=== PATIENT | female | born 1995 | race African-American/Black ===

== ENCOUNTER 2017-08-21 14:28 | Emergency (ER) | payer SELFPAY ==
--- NOTE | 2017-08-21 16:19 | ER Document Report ---
ED GI/ - General Chief Complaint: Abdominal Pain Stated Complaint: ABDOMINAL PAIN Time Seen by Provider: 08/21/17 16:05 Notes: The patient is a 22-year-old female who presents with several weeks of lower abdominal cramping, upper leg cramping and vaginal bleeding. The vaginal bleeding has resolved. She had a home test a few days ago and is unsure if she miscarried. She says that she frequently has lower abdominal cramping, lower back pain and upper leg cramping when she has her period. She is also having mild dysuria. Patient denies nausea, vomiting, fevers, flank pain , diarrhea, constipation or leg swelling. TRAVEL OUTSIDE OF THE [place] IN LAST 30 DAYS: No - Related Data Allergies/Adverse Reactions: No Known Allergies Allergy (Unverified 08/21/17 14:39) Past Medical History - General Information source: Patient - Social History Smoking Status: Never Smoker Chew tobacco use (# tins/day): No Frequency of alcohol use: None Drug Abuse: None Family History: Reviewed & Not Pertinent Patient has suicidal ideation: No Patient has homicidal ideation: No Pulmonary Medical History: Reports: Hx Bronchitis Renal/ Medical History: Denies: Hx Peritoneal Dialysis Past Surgical History: Reports: Hx Tonsillectomy Review of Systems - Review of Systems Notes: REVIEW OF SYSTEMS: CONSTITUTIONAL: -fevers, -chills EENT: -eye pain, -difficulty swallowing, -nasal congestion CARDIOVASCULAR:-chest pain, -syncope. RESPIRATORY: -cough, -SOB GASTROINTESTINAL: +lower abdominal pain, -nausea, -vomiting, -diarrhea GENITOURINARY: +dysuria, -hematuria, +vaginal bleeding MUSCULOSKELETAL: +back pain, -neck pain SKIN: -rash or skin lesions. HEMATOLOGIC: -easy bruising or bleeding. LYMPHATIC: -swollen, enlarged glands. NEUROLOGICAL: -altered mental status or loss of consciousness, -headache, - neurologic symptoms PSYCHIATRIC: -anxiety, -depression. ALL OTHER SYSTEMS REVIEWED AND NEGATIVE. Physical Exam - Vital signs Vitals: Temp Pulse Resp BP Pulse Ox 98.5 F 87 16 148/81 H 99 08/21/17 14:39 08/21/17 14:39 08/21/17 14:39 08/21/17 14:39 08/21/17 14:39 - Notes Notes: PHYSICAL EXAMINATION: GENERAL: Well-appearing, well-nourished and in no acute distress. HEAD: Atraumatic, normocephalic. EYES: Pupils equal round and reactive to light, extraocular movements intact, sclera anicteric, conjunctiva are normal. ENT: nares patent, oropharynx clear without exudates. Moist mucous membranes. NECK: Normal range of motion, supple without lymphadenopathy LUNGS: Breath sounds clear to auscultation bilaterally and equal. No wheezes rales or rhonchi. HEART: Regular rate and rhythm without murmurs ABDOMEN: Soft, nontender, normoactive bowel sounds. No guarding, no rebound. No masses appreciated. EXTREMITIES: Normal range of motion, no pitting or edema. No cyanosis. NEUROLOGICAL: Cranial nerves grossly intact. Normal speech, normal gait. Normal sensory and motor exams. PSYCH: Normal mood, normal affect. SKIN: Warm, Dry, normal turgor, no rashes or lesions noted. Course - Re-evaluation Re-evalutation: Patient has absolutely no abdominal tenderness. With mild dysuria, 17 WBCs and moderate leukocyte esterase, will place patient on Macrobid. She is not and with a positive home test, vaginal bleeding and a negative test in the ER, she may have miscarried. Referred her to gynecology for further evaluation and treatment. She appears well and rest of labs are unremarkable. Will discharge patient home with strict return precautions. - Vital Signs Vital signs: Temp Pulse Resp BP Pulse Ox 98.5 F 87 16 148/81 H 99 08/21/17 14:39 08/21/17 14:39 08/21/17 14:39 08/21/17 14:39 08/21/17 14:39 - Laboratory Result Diagrams: 08/21/17 16:42 08/21/17 16:42 Laboratory results interpreted by me: 08/21/17 08/21/17 16:42 16:42 Hgb 11.6 L Hct 33.8 L Ur Leukocyte Esterase MODERATE H Urine Ascorbic Acid 20 H Discharge - Discharge Clinical Impression: Abdominal pain Qualifiers: Abdominal location: lower abdomen, unspecified Qualified Code(s): R10.30 - Lower abdominal pain, unspecified UTI (urinary tract infection) Qualifiers: Urinary tract infection type: acute cystitis Hematuria presence: without hematuria Qualified Code(s): N30.00 - Acute cystitis without hematuria Condition: Stable Disposition: HOME, SELF-CARE Additional Instructions: ABDOMINAL PAIN: There are many causes of abdominal pain. Pain can mean a serious problem requiring surgery (such as appendicitis). It can also be an innocent problem that goes away on its own (such as a viral infection). Often, time must pass to determine the cause of pain. The physician does not feel that hospitalization is necessary, at present. Things may change within the next 24 hours. Call the doctor or come back for re- examination if any problems occur, such as: (1) Pain that becomes more severe, steady, or becomes concentrated in one specific area. Also, pain that is more severe with movement or coughing. (2) Vomiting that persists or becomes more frequent. (3) Blood in the vomitus, urine, or bowel movements. Blood in the stool may have a tarry or black appearance. (4) Shaking chills or fever greater than 100 degrees F. (5) The abdomen becomes more distended or swollen. (6) Bowel movements cease. (7) Failure to improve as expected. NORMAL EXAM AND WORKUP: At this time, your examination and workup show no significant abnormality. No significant abnormal physical findings are noted. All laboratory, EKG, and imaging (x-ray, CT scans, ultrasound) studies that were ordered show no significant abnormality. Although your examination and all studies that were ordered showed no significant abnormal finding, there are no examinations and no studies that are 100% accurate. There is always the possibility that some abnormality could exist and not be detected with physical examination or within the limits and capabilities of laboratory and other studies. You should return or follow up as you were instructed on your visit today for further evaluation if your symptoms do not resolve. FOLLOW-UP CARE: If you have been referred to a physician for follow-up care, call the physician s office for an appointment as you were instructed or within the next two days. If you experience worsening or a significant change in your symptoms, notify the physician immediately or return to the Emergency Department at any time for re-evaluation. URINARY TRACT INFECTION: Your evaluation indicates that you have a urinary tract infection. This is due to germs growing in the bladder. This is a common problem. This infection usually responds quickly to antibiotics. Your antibiotic should be taken exactly as prescribed. Drink plenty of fluids -- three to four quarts a day. Occasionally, a bladder anesthetic will be prescribed to help stop the feeling of urgency until the antibiotic has a chance to clear the infection. This may cause your urine to be dark orange. Certain urine infections require a culture. If the doctor obtained a culture, the results will be back in two days. You should call to see if a change in treatment is needed. A repeat urinalysis after you finish treatment is often recommended. The physician will let you know if further testing is required. Call the doctor if you develop fever, chills, flank pain, inability to urinate, or blood in the urine. NITROFURANTOIN (MACRODANTIN, MACROBID): You have received a prescription for nitrofurantoin (Macrodantin). This antibiotic is used for urinary tract infections. Women who are or nursing should notify the physician before taking this medicine. If you have ever had a problem caused by this medication in the past, be sure the physician is aware of it. Common side effects of this medicine include nausea, vomiting, or decreased appetite. Notify your physician if these side effects become severe. Immediately stop this medicine and call the physician if you develop cough , shortness of breath, chest pain, weakness, jaundice (yellow color of the skin and whites of the eyes), or a skin rash. FOLLOW-UP CARE: If you have been referred to a physician for follow-up care, call the physician s office for an appointment as you were instructed or within the next two days. If you experience worsening or a significant change in your symptoms, notify the physician immediately or return to the Emergency Department at any time for re-evaluation. Prescriptions: Nitrofurantoin/Nitrofuran Mac [Macrobid 100 mg Capsule] 1 tab PO BID #10 capsule Referrals: THAIS ROSADO MD [ACTIVE STAFF] - Follow up as needed
[2017-08-21 16:56] LABS: ABSOLUTE LYMPHOCYTES (AUTO) 2.3 10^3/uL (0.5-4.7); ABSOLUTE MONOCYTES (AUTO) 0.5 10^3/uL (0.1-1.4); ABSOLUTE NEUT (AUTO) 3.9 10^3/uL (1.7-8.2); BASOPHILS % (AUTO) 0.6 % (0-2); EOSINOPHILS % (AUTO) 0.6 % (0-6); HEMATOCRIT 33.8 % (36.0-47.0); HEMOGLOBIN 11.6 g/dL (12.0-15.5); LYMPHOCYTES % (AUTO) 33.6 % (13-45); MEAN CORPUSCULAR HEMOGLOBIN 28.4 pg (27.0-33.4); MEAN CORPUSCULAR HGB CONC 34.2 g/dL (32.0-36.0); MEAN CORPUSCULAR VOLUME 83 fl (80-97); MONOCYTES % (AUTO) 7.3 % (3-13); RED BLOOD COUNT 4.08 10^6/uL (3.72-5.28); SEGMENTED NEUTROPHILS % (AUTO) 57.9 % (42-78); WHITE BLOOD COUNT 6.8 10^3/uL (4.0-10.5)
[2017-08-21 17:02] LABS: APPEARANCE,URINE SLIGHTLY-CLOUDY; BILIRUBIN,URINE NEGATIVE (NEGATIVE); GLUCOSE, URINE NEGATIVE (NEGATIVE); KETONES,URINE NEGATIVE (NEGATIVE); LEUKOCYTE ESTERASE,URINE MODERATE (NEGATIVE); NITRITE,URINE NEGATIVE (NEGATIVE); PROTEIN,URINE NEGATIVE (NEGATIVE); URINE SPECIFIC GRAVITY 1.013; UROBILINOGEN,URINE NEGATIVE mg/dL (<2.0)
[2017-08-21 17:35] LABS: ALANINE AMINOTRANSFERASE 21 U/L (9-52); ALBUMIN 4.4 g/dL (3.5-5.0); ALKALINE PHOSPHATASE 76 U/L (38-126); ANION GAP 12 (5-19); ASPARTATE AMINO TRANSFERASE 24 U/L (14-36); BILIRUBIN,DIRECT 0.3 mg/dL (0.0-0.4); BILIRUBIN,TOTAL 0.3 mg/dL (0.2-1.3); BLOOD UREA NITROGEN 8 mg/dL (7-20); CALCIUM 9.1 mg/dL (8.4-10.2); CARBON DIOXIDE 23 mmol/L (22-30); CHLORIDE 104 mmol/L (98-107); CREATININE RESULT 0.61 mg/dL (0.52-1.25); GLUCOSE 82 mg/dL (75-110); POTASSIUM 3.9 mmol/L (3.6-5.0); SODIUM 139.4 mmol/L (137-145); TOTAL PROTEIN 8.2 g/dL (6.3-8.2)
[2017-08-21 18:40] VITALS: BP 130/78
== END 2017-08-21 18:36 | disposition home or self-care (01) ==
LOC: ER 14:28
DX: N30.00 Acute cystitis without hematuria (principal); R10.30 Lower abdominal pain, unspecified; R25.2 Cramp and spasm; N93.9 Abnormal uterine and vaginal bleeding, unspecified
CPT/HCPCS: 36415; 80053; 81001; 84702; 85025; 86900; 86901; 99284

== ENCOUNTER 2017-09-15 14:14 | Emergency (ER) | payer SELFPAY ==
--- NOTE | 2017-09-15 14:40 | ER Document Report ---
ED Medical Screen (RME) - General Chief Complaint: Pelvic Pain Stated Complaint: PELVIC PAIN Time Seen by Provider: 09/15/17 14:38 Mode of Arrival: Ambulatory Information source: Patient TRAVEL OUTSIDE OF THE [place] IN LAST 30 DAYS: No - HPI Patient complains to provider of: vaginal bleeding ; pelvic pain Onset: Other - pt states she had vaginal bleeding for 2 weeks last month which finally stopped and now has had severe R sided pelvic pain for the past 1-2 days. - Related Data Allergies/Adverse Reactions: No Known Allergies Allergy (Unverified 08/21/17 14:39) Home Medications: Current Home Medications No Home Medications 09/15/17 [History] Past Medical History - Social History Chew tobacco use (# tins/day): No Frequency of alcohol use: None Drug Abuse: None Pulmonary Medical History: Reports: Hx Bronchitis Renal/ Medical History: Denies: Hx Peritoneal Dialysis Past Surgical History: Reports: Hx Tonsillectomy Physical Exam - Vital signs Vitals: Temp Pulse Resp BP Pulse Ox 98.5 F 85 14 132/68 H 100 09/15/17 14:28 09/15/17 14:28 09/15/17 14:28 09/15/17 14:28 09/15/17 14:28 Course - Vital Signs Vital signs: Temp Pulse Resp BP Pulse Ox 98.5 F 85 14 132/68 H 100 09/15/17 14:28 09/15/17 14:28 09/15/17 14:28 09/15/17 14:28 09/15/17 14:28
[2017-09-15 15:06] LABS: ABSOLUTE EOSINOPHILS # (AUTO) 0.1 10^3/uL (0.0-0.6); ABSOLUTE LYMPHOCYTES (AUTO) 1.9 10^3/uL (0.5-4.7); ABSOLUTE MONOCYTES (AUTO) 0.5 10^3/uL (0.1-1.4); BASOPHILS % (AUTO) 0.4 % (0-2); EOSINOPHILS % (AUTO) 1.6 % (0-6); HEMATOCRIT 35.1 % (36.0-47.0); HEMOGLOBIN 11.8 g/dL (12.0-15.5); HGB HCT DIFFERENCE 0.3; LYMPHOCYTES % (AUTO) 35.2 % (13-45); MEAN CORPUSCULAR HEMOGLOBIN 28.1 pg (27.0-33.4); MEAN CORPUSCULAR HGB CONC 33.7 g/dL (32.0-36.0); MEAN CORPUSCULAR VOLUME 83 fl (80-97); MONOCYTES % (AUTO) 8.4 % (3-13); RED BLOOD COUNT 4.22 10^6/uL (3.72-5.28); SEGMENTED NEUTROPHILS % (AUTO) 54.4 % (42-78); WHITE BLOOD COUNT 5.5 10^3/uL (4.0-10.5)
[2017-09-15 15:18] LABS: APPEARANCE,URINE SLIGHTLY-CLOUDY; BILIRUBIN,URINE NEGATIVE (NEGATIVE); GLUCOSE, URINE NEGATIVE (NEGATIVE); KETONES,URINE NEGATIVE (NEGATIVE); LEUKOCYTE ESTERASE,URINE SMALL (NEGATIVE); NITRITE,URINE NEGATIVE (NEGATIVE); PROTEIN,URINE NEGATIVE (NEGATIVE); UROBILINOGEN,URINE NEGATIVE mg/dL (<2.0)
[2017-09-15 15:21] LABS: ALANINE AMINOTRANSFERASE 26 U/L (9-52); ALBUMIN 4.3 g/dL (3.5-5.0); ALKALINE PHOSPHATASE 74 U/L (38-126); ANION GAP 17 (5-19); ASPARTATE AMINO TRANSFERASE 17 U/L (14-36); BILIRUBIN,DIRECT 0.3 mg/dL (0.0-0.4); BILIRUBIN,TOTAL 0.6 mg/dL (0.2-1.3); BLOOD UREA NITROGEN 9 mg/dL (7-20); CALCIUM 9.7 mg/dL (8.4-10.2); CARBON DIOXIDE 24 mmol/L (22-30); CHLORIDE 104 mmol/L (98-107); CREATININE RESULT 0.72 mg/dL (0.52-1.25); GLUCOSE 96 mg/dL (75-110); POTASSIUM 4.2 mmol/L (3.6-5.0); SODIUM 144.5 mmol/L (137-145)
--- NOTE | 2017-09-15 15:51 | ER Document Report ---
ED GI/ - General Chief Complaint: Pelvic Pain Stated Complaint: PELVIC PAIN Time Seen by Provider: 09/15/17 14:38 Mode of Arrival: Ambulatory Notes: 22 years old female presents today with pain over lower abdomen and pelvic region for the last 2-3 days. Apparently she had a heavy bleeding for 2 weeks in June to August. And then is stopped. Currently has no vaginal discharge or bleeding. Denies any dysuria frequency urgency. Denies any nausea vomiting. She admits that she gets constipated frequently. TRAVEL OUTSIDE OF THE [place] IN LAST 30 DAYS: No - Related Data Allergies/Adverse Reactions: No Known Allergies Allergy (Unverified 08/21/17 14:39) Past Medical History - General Information source: Patient - Social History Smoking Status: Never Smoker Chew tobacco use (# tins/day): No Frequency of alcohol use: None Drug Abuse: None Family History: Reviewed & Not Pertinent Patient has suicidal ideation: No Patient has homicidal ideation: No Pulmonary Medical History: Reports: Hx Bronchitis Renal/ Medical History: Denies: Hx Peritoneal Dialysis Past Surgical History: Reports: Hx Tonsillectomy Review of Systems - Review of Systems Notes: REVIEW OF SYSTEMS: CONSTITUTIONAL : Denies fever, chills, or sweats. Denies recent illness. EENT: Denies eye, ear, throat, or mouth pain or symptoms. Denies nasal or sinus congestion or discharge. Denies throat, tongue, or mouth swelling or difficulty swallowing. CARDIOVASCULAR: Denies chest pain. Denies palpitations or racing or irregular heart beat. Denies ankle edema. RESPIRATORY: Denies cough, cold, or chest congestion. Denies shortness of breath, difficulty breathing, or wheezing. GASTROINTESTINAL: Denies abdominal pain or distention. Denies nausea, vomiting , or diarrhea. Denies blood in vomitus, stools, or per rectum. Denies black, tarry stools. Denies constipation. GENITOURINARY: Denies difficulty urinating, painful urination, burning, frequency, blood in urine, or discharge. FEMALE GENITOURINARY: Denies vaginal bleeding, heavy or abnormal periods, irregular periods. Denies vaginal discharge or odor. MUSCULOSKELETAL: Denies back or neck pain or stiffness. Denies joint pain or swelling. SKIN: Denies rash, lesions or sores. HEMATOLOGIC : Denies easy bruising or bleeding. LYMPHATIC: Denies swollen, enlarged glands. NEUROLOGICAL: Denies confusion or altered mental status. Denies passing out or loss of consciousness. Denies dizziness or lightheadedness. Denies headache. Denies weakness or paralysis or loss of use of either side. Denies problems with gait or speech. Denies sensory loss, numbness, or tingling. Denies seizures. PSYCHIATRIC: Denies anxiety or stress. Denies depression, suicidal ideation, or homicidal ideation. ALL OTHER SYSTEMS REVIEWED AND NEGATIVE. PHYSICAL EXAMINATION: GENERAL: Well-appearing, well-nourished and in no acute distress. HEAD: Atraumatic, normocephalic. EYES: Pupils equal round and reactive to light, extraocular movements intact, conjunctiva are normal. ENT: Nares patent, oropharynx clear without exudates. Moist mucous membranes. NECK: Normal range of motion, supple without lymphadenopathy LUNGS: Breath sounds clear to auscultation bilaterally and equal. No wheezes rales or rhonchi. HEART: Regular rate and rhythm without murmurs ABDOMEN: Soft, palpable fecal mass on the left side and tenderness diffusely over the left lower quadrant and suprapubic region.. No guarding, no rebound. No masses appreciated. Female : deferred Musculoskeletal: Normal range of motion, no pitting or edema. No cyanosis. NEUROLOGICAL: Cranial nerves grossly intact. Normal speech, normal gait. Normal sensory, motor exams PSYCH: Normal mood, normal affect. SKIN: Warm, Dry, normal turgor, no rashes or lesions noted. Dictation was performed using [employer] voice recognition software Physical Exam - Vital signs Vitals: Temp Pulse Resp BP Pulse Ox 98.5 F 85 14 132/68 H 100 09/15/17 14:28 09/15/17 14:28 09/15/17 14:28 09/15/17 14:28 09/15/17 14:28 Course - Vital Signs Vital signs: Temp Pulse Resp BP Pulse Ox 98.5 F 85 14 132/68 H 100 09/15/17 14:28 09/15/17 14:28 09/15/17 14:28 09/15/17 14:28 09/15/17 14:28 - Laboratory Result Diagrams: 09/15/17 14:50 09/15/17 14:50 Laboratory results interpreted by me: 09/15/17 09/15/17 14:50 14:50 Hgb 11.8 L Hct 35.1 L Ur Leukocyte Esterase SMALL H - Diagnostic Test Radiology results interpreted by me: 09/15/17 17:09 Radiology report was reviewed, ultrasound indicates as a normal study KUB was reviewed shows large amount of fecal material. Discharge - Discharge Clinical Impression: Abdominal pain Qualifiers: Abdominal location: lower abdomen, unspecified Qualified Code(s): R10.30 - Lower abdominal pain, unspecified Constipation Qualifiers: Constipation type: slow transit constipation Qualified Code(s): K59.01 - Slow transit constipation Menses regular with excessive bleeding Qualifiers: Menorrahagia type: with regular cycle Qualified Code(s): N92.0 - Excessive and frequent menstruation with regular cycle Condition: Good Disposition: HOME, SELF-CARE Instructions: Abdominal Pain ([facility]) Additional Instructions: Constipation Prescriptions: Dicyclomine HCl [Bentyl 10 mg Capsule] 1 cap PO TID #30 cap Lactulose 20 gm PO BID #100 ml
--- NOTE | 2017-09-15 16:43 | RADIOLOGY REPORT (SQ) ---
EXAM DESCRIPTION: KUB/ABDOMEN (SINGLE VIEW) COMPLETED DATE/TIME: 09/15/2017 4:34 pm REASON FOR STUDY: Abdominal pain COMPARISON: None. NUMBER OF VIEWS: One view. TECHNIQUE: Supine radiographic image of the abdomen acquired. LIMITATIONS: None. FINDINGS: BOWEL GAS PATTERN: Normal bowel gas pattern. No dilated loops. CALCIFICATIONS: No suspicious calcifications. SOFT TISSUES: No gross mass or suggestion of organomegaly. HARDWARE: None in the abdomen. BONES: No acute fracture. No worrisome bone lesions. OTHER: No other significant finding. IMPRESSION: NO RADIOGRAPHIC EVIDENCE FOR ACUTE ABDOMINAL DISEASE. TECHNICAL DOCUMENTATION: JOB ID: [id number] [employer]- All Rights Reserved
--- NOTE | 2017-09-15 16:44 | RADIOLOGY REPORT (SQ) ---
EXAM DESCRIPTION: U/S NON-OB PELVIS TV W/O DOP COMPLETED DATE/TIME: 09/15/2017 4:18 pm REASON FOR STUDY: Abdominal pain COMPARISON: None. TECHNIQUE: Dynamic and static grayscale images acquired of the pelvis via transvaginal approach and recorded on PACS. Additional selected color Doppler and spectral images recorded. LIMITATIONS: None. FINDINGS: UTERUS: Contour normal. No mass. ENDOMETRIAL STRIPE: No focal or generalized thickening. No masses. CERVIX: Single complicated Nabothian 5th anterior cervix. RIGHT OVARY: No abnormal masses. RIGHT OVARY DOPPLER: Normal arterial vascular flow without evidence for torsion. LEFT OVARY: No abnormal masses. LEFT OVARY DOPPLER: Normal arterial vascular flow without evidence for torsion. FREE FLUID: None noted. OTHER: No other significant finding. MEASUREMENTS: UTERUS: 7.1 x 4.2 x 3.0 cm. ENDOMETRIAL STRIPE: 5 mm RIGHT OVARY: 3.0 x 3.5 x 2.3 cm. LEFT OVARY: 3.4 x 2.0 x 1.8 cm. IMPRESSION: NORMAL TRANSVAGINAL PELVIC ULTRASOUND. TECHNICAL DOCUMENTATION: JOB ID: [id number]- All Rights Reserved
[2017-09-15 17:27] VITALS: BP 118/74
== END 2017-09-15 17:20 | disposition home or self-care (01) ==
LOC: ER 14:14
DX: K59.01 Slow transit constipation (principal); N92.0 Excessive and frequent menstruation with regular cycle; R10.2 Pelvic and perineal pain; R10.814 Left lower quadrant abdominal tenderness
CPT/HCPCS: 36415; 74000; 76830; 80053; 81001; 81025; 85025; 99284

== ENCOUNTER 2019-04-27 11:54 | Emergency (ER) | payer SELFPAY ==
--- NOTE | 2019-04-27 12:35 | ER Document Report ---
ED Psych Disorder / Suicide - General TRAVEL OUTSIDE OF THE [place] IN LAST 30 DAYS: No <REID BATES - Last Filed: 04/27/19 19:00> <EVAN DINERO - Last Filed: 04/28/19 09:51> <WENDYSKYETAM - Last Filed: 04/28/19 10:08> - General Chief Complaint: Possible Overdose Stated Complaint: POSSIBLE OVERDOSE Time Seen by Provider: 04/27/19 12:33 Primary Care Provider: [facility] [Outside] - Follow up as needed [facility] [Outside] - 04/28/19 3:00 pm Notes: Patient says she is here because she took too many pills. She says that she has been depressed and about 1030 this morning took a whole bottle of hydrocodone pills. The bottle of hydrocodone says that it was the hydrocodone 5 mg/325 and that there were approximately 15 pills in the bottle. She also says that she took about 5 or 6 [id number] ibuprofen 800 mg. She is vomited about 5 or 6 times. Otherwise no symptoms. Near tearful during my interview. (REID BATES) - Related Data Allergies/Adverse Reactions: No Known Allergies Allergy (Verified 04/27/19 11:55) Past Medical History - Social History Smoking Status: Unknown if Ever Smoked Family History: Reviewed & Not Pertinent Pulmonary Medical History: Reports: Hx Bronchitis Past Surgical History: Reports: Hx Tonsillectomy <REID BATES - Last Filed: 04/27/19 19:00> Review of Systems <REID BATES - Last Filed: 04/27/19 19:00> - Review of Systems Notes: CONSTITUTIONAL : Denies fever. CARDIOVASCULAR: Denies chest pain. RESPIRATORY: Denies cough, chest congestion, or shortness of breath. GASTROINTESTINAL: Denies abdominal pain or nausea, vomiting, or diarrhea. GENITOURINARY: Denies difficulty or painful urinating, urinary frequency, blood in urine. (REID BATES) Physical Exam - Vital signs Interpretation: Normal, Hypertensive - Mild <REID BATES - Last Filed: 04/27/19 19:00> - Vital signs Vitals: Temp Pulse Resp BP Pulse Ox 98.2 F 91 18 173/100 H 98 04/27/19 11:59 04/27/19 11:59 04/27/19 11:59 04/27/19 11:59 04/27/19 11:59 Notes: PHYSICAL EXAMINATION: GENERAL: Well-appearing, no acute distress. Sad and near tears at times. HEAD: Atraumatic, normocephalic. NECK: Normal range of motion, supple. LUNGS: Breath sounds clear and equal bilaterally. HEART: Regular rate and rhythm without murmurs heard. ABDOMEN: Soft, nontender. No guarding or rebound or masses felt. (REID BATES) Course - Laboratory Result Diagrams: 04/27/19 12:50 04/27/19 12:50 <REID BATES - Last Filed: 04/27/19 19:00> - Laboratory Result Diagrams: 04/27/19 12:50 04/28/19 06:12 <EVAN DINERO - Last Filed: 04/28/19 09:51> - Laboratory Result Diagrams: 04/27/19 12:50 04/28/19 06:12 <TAM SÁNCHEZ - Last Filed: 04/28/19 10:08> - Re-evaluation Re-evalutation: 04/27/19 16:20 Patient will be evaluated by [facility]. Routine labs will be ordered. 04/27/19 19:00 All admission labs were essentially normal except the urine looks like the patient could have either a UTI or a contaminated specimen. Of asked the lab to add on a urine culture. (REID BATES) - Vital Signs Vital signs: Temp Pulse Resp BP Pulse Ox 98.6 F 85 20 127/79 H 100 04/28/19 06:36 04/28/19 06:36 04/28/19 06:36 04/28/19 06:36 04/28/19 06:36 - Laboratory Laboratory results interpreted by ar: 04/27/19 04/27/19 04/27/19 12:50 12:50 13:50 Hgb 11.3 L Hct 34.0 L Urine Protein 30 H Ur Leukocyte Esterase LARGE H Urine Ascorbic Acid 40 H Salicylates < 1.0 L Acetaminophen 04/28/19 06:12 Hgb Hct Urine Protein Ur Leukocyte Esterase Urine Ascorbic Acid Salicylates Acetaminophen < 10 L Discharge <REID BATES - Last Filed: 04/27/19 19:00> <EVAN DINERO - Last Filed: 04/28/19 09:51> <TAM SÁNCHEZ - Last Filed: 04/28/19 10:08> - Discharge Clinical Impression: Suicidal overdose Qualifiers: Encounter type: initial encounter Qualified Code(s): T50.902A - Poisoning by unspecified drugs, medicaments and biological substances, intentional self-harm, initial encounter Depression Qualifiers: Depression Type: unspecified Qualified Code(s): F32.9 - Major depressive disorder, single episode, unspecified Condition: Stable Disposition: HOME, SELF-CARE Additional Instructions: You have been evaluated by both medical and behavioral health providers while in the emergency department. You have been cleared from both acute medical and psychiatric services. Discussion about medication took place for ruminating thoughts, depression and feelings of loneliness. You identified an interest in talking with somebody and started outpatient services with therapy. You have an initial appointment today (04/28/19) with a local provider that will establish services. Medication management and therapy are often very effective in combination. DEPRESSION: Your evaluation reveals that you have mental depression. While symptoms may be vague, they often include disturbance of sleep, fatigue, loss of appetite, and general loss of interest in life. While depression may be a side effect of drugs, or a reaction to a major change in your life, many cases have no known cause. If depression is acute, and related to a major loss in your life, you can expect it to clear completely with time. If you have been depressed a long time, are prone to repeated bouts of depression or low mood, or have been thinking of suicide, get help. Depression can be treated with anti-depressant medication and counselling. Long-term depression will often take a few weeks to clear, even with approp riate medication. Follow-up care is important. SUICIDAL IDEATION: Suicidal ideation is a common medical term for thoughts about suicide, which may be as detailed as a formulated plan, without the suicidal act itself. Although most people who undergo suicidal ideation do not commit suicide, some go on to make suicide attempts. The range of suicidal ideation varies greatly from fleeting to detailed planning, role playing, and unsuccessful attempts. While thoughts about suicide are common, most people do not carry out serious actions to commit suicide. Based upon your evaluation and discussion with you, we do not believe you are currently at risk to act upon your thoughts of suicide. You have agreed to return to the Emergency Department, at any time, if you feel inclined to act upon your suicidal thoughts. Overdose You have taken more medication than you should have. After your evaluation and care, it is felt that your overdose is not likely to be harmful or of any significant consequences to you and you are being discharged. In the future, y ou should be careful not to take more medications than what is prescribed for you. Although your overdose does not seem to be of any danger to you at this time, if you develop any unusual or unexpected symptoms after your discharge, you should return to the Emergency Department immediately for re-evaluation. FOLLOW-UP CARE: You have been scheduled for outpatient mental health follow up at [facility] for today (04/28/19) at 3:00PM. This is a general intake appointment and screening. They will arrange services and make appointments for those services after the intake. You have been provided [facility] Mobile Crisis number for crisis, talk therapy and linkage to other services/supports. If you experience worsening or a significant change in your symptoms, notify the physician immediately, utilize mobile crisis or return to the Emergency Department at any time for re-evaluation. Referrals: [facility] Crisis Team [Outside] - Follow up as needed [facility] [Outside] - 04/28/19 3:00 pm
[2019-04-27 13:20] LABS: ABSOLUTE LYMPHOCYTES (AUTO) 1.6 10^3/uL (0.5-4.7); ABSOLUTE MONOCYTES (AUTO) 0.5 10^3/uL (0.1-1.4); ABSOLUTE NEUT (AUTO) 3.3 10^3/uL (1.7-8.2); BASOPHILS % (AUTO) 0.5 % (0-2); EOSINOPHILS % (AUTO) 0.3 % (0-6); HEMOGLOBIN 11.3 g/dL (12.0-15.5); LYMPHOCYTES % (AUTO) 29.7 % (13-45); MEAN CORPUSCULAR HEMOGLOBIN 27.1 pg (27.0-33.4); MEAN CORPUSCULAR HGB CONC 33.1 g/dL (32.0-36.0); MEAN CORPUSCULAR VOLUME 82 fl (80-97); MONOCYTES % (AUTO) 8.5 % (3-13); PLATELET COUNT 343 10^3/uL (150-450); RED BLOOD COUNT 4.16 10^6/uL (3.72-5.28); RED CELL DISTRIBUTION WIDTH 13.8 % (11.5-14.0); TOTAL CELLS COUNTED % (AUTO) 100 %; WHITE BLOOD COUNT 5.4 10^3/uL (4.0-10.5)
[2019-04-27 13:36] LABS: ACETAMINOPHEN 24 ug/mL (10-30); ALANINE AMINOTRANSFERASE 12 U/L (9-52); ALBUMIN 4.3 g/dL (3.5-5.0); ALKALINE PHOSPHATASE 76 U/L (38-126); ANION GAP 9 (5-19); ASPARTATE AMINO TRANSFERASE 18 U/L (14-36); BILIRUBIN,DIRECT 0.2 mg/dL (0.0-0.4); BILIRUBIN,TOTAL 0.3 mg/dL (0.2-1.3); BLOOD UREA NITROGEN 9 mg/dL (7-20); CALCIUM 9.4 mg/dL (8.4-10.2); CARBON DIOXIDE 24 mmol/L (22-30); CHLORIDE 106 mmol/L (98-107); GLUCOSE 103 mg/dL (75-110); POTASSIUM 4.2 mmol/L (3.6-5.0); SODIUM 138.9 mmol/L (137-145); TOTAL PROTEIN 7.8 g/dL (6.3-8.2)
[2019-04-27 13:37] LABS: ALCOHOL < 10 mg/dL (NONE DETECTED); SALICYLATE < 1.0 mg/dL (2.0-20.0)
[2019-04-27 14:15] LABS: APPEARANCE,URINE SLIGHTLY-CLOUDY; BILIRUBIN,URINE NEGATIVE (NEGATIVE); COLOR,URINE YELLOW; GLUCOSE, URINE NEGATIVE (NEGATIVE); KETONES,URINE NEGATIVE (NEGATIVE); LEUKOCYTE ESTERASE,URINE LARGE (NEGATIVE); NITRITE,URINE NEGATIVE (NEGATIVE); PROTEIN,URINE 30 mg/dL (NEGATIVE); URINE SPECIFIC GRAVITY 1.025; UROBILINOGEN,URINE NEGATIVE mg/dL (<2.0)
[2019-04-27 14:28] LABS: URINE AMPHETAMINES SCREEN NEGATIVE; URINE BARBITURATES SCREEN NEGATIVE; URINE BENZODIAZEPINES SCREEN NEGATIVE; URINE COCAINE SCREEN NEGATIVE; URINE MARIJUANA (THC) SCREEN NEGATIVE; URINE METHADONE SCREEN NEGATIVE; URINE PHENCYCLIDINE SCREEN NEGATIVE
--- NOTE | 2019-04-27 16:04 | EKG REPORT ---
SEVERITY:- NORMAL ECG - SINUS RHYTHM : Confirmed by: Lamine Ford MD 27-Apr-2019 16:03:41
[2019-04-28] MEDS ORDERED: ONDANSETRON 4 MG TAB.RAPDIS PO ONE (01:06)
[2019-04-28 06:45] LABS: ALANINE AMINOTRANSFERASE 18 U/L (9-52); ALBUMIN 3.8 g/dL (3.5-5.0); ALKALINE PHOSPHATASE 61 U/L (38-126); ANION GAP 7 (5-19); ASPARTATE AMINO TRANSFERASE 16 U/L (14-36); BILIRUBIN,DIRECT 0.1 mg/dL (0.0-0.4); BILIRUBIN,TOTAL 0.2 mg/dL (0.2-1.3); BLOOD UREA NITROGEN 12 mg/dL (7-20); CALCIUM 9.2 mg/dL (8.4-10.2); CARBON DIOXIDE 28 mmol/L (22-30); CHLORIDE 107 mmol/L (98-107); GLUCOSE 85 mg/dL (75-110); POTASSIUM 4.5 mmol/L (3.6-5.0); SODIUM 141.7 mmol/L (137-145)
[2019-04-28 06:48] LABS: ACETAMINOPHEN < 10 ug/mL (10-30)
--- NOTE | 2019-04-28 09:48 | ER Document Report ---
Doctor's Note Notes: 04/28/19 09:47 I have evaluated this pt. this am and she has no c/o at this time. She feels all of her needs are being met and her physical exam is normal. She is awaiting disposition per mental health.
[2019-04-28 13:10] VITALS: BP 124/73
--- NOTE | 2019-04-28 15:52 | PSYCHOLOGICAL NOTE ---
Psych Note - Psych Note Date seen by psych provider: 04/27/19 Time seen by psych provider: 12:56 - Chart review at 1256. Evaluation from 1456- 1503. Psych Note: Presenting Problem: Friend brought patient to ED after intentional OD this morning ([id number]) of Hydrocodone-Acetaminophen 5/325 (15 pills) and 800MG Ibuprofen (5-6 pills). She verbalized to medical she wanted to and expressed thoughts of hopelessness. She noted situational problems related to relations hips: boyfriend that she was in love with broke up with her and mother doesn't want anything to do with her, as well as work and money issues. She denied current SI, admitted she was trying to take her life earlier today and reported "I am glad it did not happen." She denied previous outpatient MH treatment (medication management and therapy both). She acknowledged previous MH hospitalization [id number] in [place], 72 hour hold, after she told boyfriend she wanted to kill herself. She commented "I was messing around but he called the junior brand manager." Male friend at bedside. Patient gave verbal consent to speak freely in front of him. He noted there are a bunch of them (friends/family) from [place] all natural supports. She agreed to be linked to therapy and said she thinks talking with someone would help. She denied wanting medication and commented "I don't think medications can help me it is situational." Diagnosis: SI with OD attempt V61.10 (Z63.0) Relationship Distress with Intimate Partner Relationship Distress between patient (adult) and mother 311 (F32.9) Unspecified Depressive Disorder Impression/Plan: Recommendation for 24 Hour IVC Petition. Patient attempted SI via OD this morning. She reported being glad it did not work. Want to allow for a night of respite and monitoring. She agreed to being linked to therapy and wants to start that before medication. Plan to discharge in the morning and utilize one of the natural supports in plan of care. Consulted with Dr. Alonso regarding the management and care of patient. ED Physician in agreement with rec ommendations.
--- NOTE | 2019-04-28 17:31 | PSYCHOLOGICAL NOTE ---
Psych Note - Psych Note Date seen by psych provider: 04/28/19 Time seen by psych provider: 07:37 - Chart review at 0737. Evaluation from 0828- 0832. Spoke to friend/sister regarding plan of care at 1015. Psych Note: Presenting Problem: Friend brought patient to ED yesterday afternoon after intentional OD this morning ([id number]) of Hydrocodone-Acetaminophen 5/325 (15 pills) and 800MG Ibuprofen (5-6 pills). Today patient denied SI and admitted "I have thoughts of loneliness a lot." She stated she had a previous OD at age 15 but "it was really that she passed out and nobody found her." She admitted this time was an actual attempt where she wrote a letter but was glad it did not work. She identified she felt talking to someone would be helpful and that's where she wanted to start. Psychoeducated on medication being effective with situational issues and being temporary. She stated she wanted to first try therapy. She agreed to include friend she referred to as sister, Eleanor Max ([phone]), in plan of care. Friend agreed to monitor patient more, pick her up from the ED and get her to outpatient follow up appointment today. Patient alert and oriented x5, had linear thinking, was able to carry on dialogue conversation and able to express self/wants/needs. Diagnosis: SI with OD attempt V61.10 (Z63.0) Relationship Distress with Intimate Partner Relationship Distress between patient (adult) and mother 311 (F32.9) Unspecified Depressive Disorder Impression/Plan: Patient is cleared from acute psychiatric services. She denied current SI/HI, has consistently said she is glad it did not work and no observed psychosis. Patient was alert and oriented x5 with linear thoughts. She was interested in linkage to therapy and included friend/sister in plan of care who also provided transportation. Patient scheduled for follow up outpatient [facility] (04/28/19) at 1500 for general intake. Patient provided with the outpatient MH resource sheet which documented appointment date and time, as well as highlighted IFS MCM for crisis/talk therapy/linkage to other supports and services. Consulted with Dr. Alonso regarding the management and care of patient. ED Physician in agreement with recommendations.
== END 2019-04-28 13:10 | disposition home or self-care (01) ==
LOC: ER 11:54
DX: T40.2X2A Poisoning by other opioids, intentional self-harm, initial encounter (principal); R11.10 Vomiting, unspecified; F32.9 Major depressive disorder, single episode, unspecified; Z62.820 Parent-biological child conflict; Z63.0 Problems in relationship with spouse or partner
CPT/HCPCS: 36415; 80053; 80307; 81001; 84703; 85025; 87086; 93005; 93010; 99285

== ENCOUNTER 2020-04-12 11:50 | Emergency (ER) | payer MEDICAID ==
--- NOTE | 2020-04-12 12:31 | ER Document Report ---
ED Medical Screen (RME) - General Chief Complaint: Lower Abdominal Pain Stated Complaint: ABDOMINAL PAIN Time Seen by Provider: 04/12/20 12:29 Mode of Arrival: Ambulatory Information source: Patient Notes: 24-year-old female presented to ED for complaint of lower abdominal pain. She is 1 para 0. She states she is 15 weeks due October 06. She states she has had more nausea than she has been having in her . She states she also has some cloudy urine and frequent urination. She is alert oriented respirations regular and unlabored speaking in full sentences. She states she does not smoke drink or use any illicit drugs and has no past medical history. I have greeted and performed a rapid initial assessment of this patient. A comprehensive ED assessment and evaluation of the patient, analysis of test results and completion of medical decision making process will be conducted by an additional ED providers. TRAVEL OUTSIDE OF THE [place] IN LAST 30 DAYS: No - Related Data Allergies/Adverse Reactions: No Known Allergies Allergy (Verified 04/27/19 11:55) Past Medical History Pulmonary Medical History: Reports: Hx Bronchitis Renal/ Medical History: Denies: Hx Peritoneal Dialysis Past Surgical History: Reports: Hx Tonsillectomy Physical Exam - Vital signs Vitals: Temp Pulse Resp BP Pulse Ox 98.9 F 112 H 16 143/70 H 100 04/12/20 11:54 04/12/20 11:54 04/12/20 11:54 04/12/20 11:54 04/12/20 11:54 Course - Vital Signs Vital signs: Temp Pulse Resp BP Pulse Ox 98.9 F 112 H 16 143/70 H 100 04/12/20 11:54 04/12/20 11:54 04/12/20 11:54 04/12/20 11:54 04/12/20 11:54
[2020-04-12 13:23] LABS: ABSOLUTE EOSINOPHILS # (AUTO) 0.1 10^3/uL (0.0-0.6); ABSOLUTE LYMPHOCYTES (AUTO) 1.3 10^3/uL (0.5-4.7); ABSOLUTE MONOCYTES (AUTO) 0.4 10^3/uL (0.1-1.4); ABSOLUTE NEUT (AUTO) 4.4 10^3/uL (1.7-8.2); BASOPHILS % (AUTO) 0.2 % (0-2); EOSINOPHILS % (AUTO) 0.9 % (0-6); HEMATOCRIT 33.6 % (36.0-47.0); HEMOGLOBIN 11.6 g/dL (12.0-15.5); LYMPHOCYTES % (AUTO) 21.4 % (13-45); MEAN CORPUSCULAR HEMOGLOBIN 28.1 pg (27.0-33.4); MEAN CORPUSCULAR HGB CONC 34.6 g/dL (32.0-36.0); MEAN CORPUSCULAR VOLUME 81 fl (80-97); MONOCYTES % (AUTO) 6.1 % (3-13); PLATELET COUNT 281 10^3/uL (150-450); RED BLOOD COUNT 4.13 10^6/uL (3.72-5.28); RED CELL DISTRIBUTION WIDTH 13.8 % (11.5-14.0); SEGMENTED NEUTROPHILS % (AUTO) 71.4 % (42-78); TOTAL CELLS COUNTED % (AUTO) 100 %; WHITE BLOOD COUNT 6.2 10^3/uL (4.0-10.5)
[2020-04-12 13:47] LABS: ALBUMIN 3.6 g/dL (3.5-5.0); ALKALINE PHOSPHATASE 52 U/L (38-126); ANION GAP 6 (5-19); ASPARTATE AMINO TRANSFERASE 39 U/L (14-36); BILIRUBIN,TOTAL 0.3 mg/dL (0.2-1.3); BLOOD UREA NITROGEN 5 mg/dL (7-20); CALCIUM 9.4 mg/dL (8.4-10.2); CARBON DIOXIDE 21 mmol/L (22-30); CHLORIDE 107 mmol/L (98-107); GLUCOSE 97 mg/dL (75-110); POTASSIUM 3.4 mmol/L (3.6-5.0)
--- NOTE | 2020-04-12 14:51 | RADIOLOGY REPORT (SQ) ---
EXAM DESCRIPTION: U/S OB 14+ TRNABD 1GES W/O DOP IMAGES COMPLETED DATE/TIME: 04/12/2020 2:05 pm REASON FOR STUDY: Bilateral lower abdominal pain 15 weeks COMPARISON: None. TECHNIQUE: Static and Dynamic grayscale imaging performed of gravid uterus using transabdominal appr oach. Additional selected color Doppler and spectral images recorded. All stored on PACS. LIMITATIONS: None. FINDINGS: FETUSES SEEN:1 EGA: 15 weeks 5 days Calculated using BPD,FL,HC,AC documented on images. GABY: 09/29/2020 LVP: 4.4 x 4.7 cm PLACENTA: Posterior. PRESENTATION: Breech ANATOMY: HEART RATE: 158 beats per minute. OTHER: No other significant finding. MATERNAL ADNEXA: Not imaged CERVICAL LENGTH: 2.9 cm Closed. OTHER: No other significant finding. IMPRESSION: LIVING INTRAUTERINE WITH ESTIMATED GESTATIONAL AGE OF 15 WEEKS AND 5 DAYS. NO VISUALIZED ANOMALIES. Trimester of : Second trimester - 13 weeks 1 day to 27 weeks 6 days. TECHNICAL DOCUMENTATION: JOB ID: [id number] 2010 [employer] All Rights Reserved Reading location - IP/workstation name: [email or web address]
--- NOTE | 2020-04-12 15:11 | ER Document Report ---
ED GI/ - General Chief Complaint: Lower Abdominal Pain Stated Complaint: ABDOMINAL PAIN Time Seen by Provider: 04/12/20 12:29 Primary Care Provider: THAIS ROSADO MD [Primary Care Provider] - Follow up as needed Mode of Arrival: Ambulatory Notes: 24-year-old female presented to ED for complaint of lower abdominal pain. She is 1 para 0. She states she is 15 weeks due October 06. She states she has had more nausea than she has been having in her . She states she also has some cloudy urine and frequent urination. She is alert oriented respirations regular and unlabored speaking in full sentences. She states she does not smoke drink or use any illicit drugs and has no past medical history. TRAVEL OUTSIDE OF THE [place] IN LAST 30 DAYS: No - Related Data Allergies/Adverse Reactions: No Known Allergies Allergy (Verified 04/27/19 11:55) Home Medications: pre-herbert medication Past Medical History - General Information source: Patient - Social History Smoking Status: Never Smoker Frequency of alcohol use: None Drug Abuse: None Family History: Reviewed & Not Pertinent Patient has homicidal ideation: No Pulmonary Medical History: Reports: Hx Bronchitis Renal/ Medical History: Denies: Hx Peritoneal Dialysis Past Surgical History: Reports: Hx Tonsillectomy - Immunizations Immunizations up to date: Yes Review of Systems - Review of Systems Constitutional: denies: Chills, Fever Gastrointestinal: Nausea Genitourinary: Dysuria, Other - cloudy urine -: Yes All other systems reviewed and negative Physical Exam - Vital signs Vitals: Temp Pulse Resp BP Pulse Ox 98.9 F 112 H 16 143/70 H 100 04/12/20 11:54 04/12/20 11:54 04/12/20 11:54 04/12/20 11:54 04/12/20 11:54 - Notes Notes: PHYSICAL EXAMINATION: GENERAL: Well-appearing, well-nourished and in no acute distress. HEAD: Atraumatic, normocephalic. EYES: Pupils equal round and reactive to light, extraocular movements intact, conjunctiva are normal. ENT: Nares patent, oropharynx clear without exudates. Moist mucous membranes. NECK: Normal range of motion, supple without lymphadenopathy LUNGS: Breath sounds clear to auscultation bilaterally and equal. No wheezes rales or rhonchi. HEART: Regular rate and rhythm without murmurs ABDOMEN: Soft, nontender, nondistended abdomen. No guarding, no rebound. No masses appreciated. Female : No CVA tenderness Musculoskeletal: Normal range of motion, no pitting or edema. No cyanosis. NEUROLOGICAL: Cranial nerves grossly intact. Normal speech, normal gait. Normal sensory, motor exams PSYCH: Normal mood, normal affect. SKIN: Warm, Dry, normal turgor, no rashes or lesions noted. Course - Re-evaluation Re-evalutation: Obstetrics Ultrasound 04/12/20 12:29 IMPRESSION: LIVING INTRAUTERINE WITH ESTIMATED GESTATIONAL AGE OF 15 WEEKS AND 5 DAYS. NO VISUALIZED ANOMALIES. Trimester of : Second trimester - 13 weeks 1 day to 27 weeks 6 days. Microbiology 04/12/20 12:48 Urine Culture - Preliminary Clean Catch Midstream Mixed Urogenital [facility] 04/12/20 04/12/20 04/12/20 12:48 12:51 12:51 WBC 6.2 RBC 4.13 Hgb 11.6 L Hct 33.6 L MCV 81 MCH 28.1 MCHC 34.6 RDW 13.8 Plt Count 281 Lymph % (Auto) 21.4 [place] % (Auto) 6.1 Eos % (Auto) 0.9 Baso % (Auto) 0.2 Absolute Neuts (auto) 4.4 Absolute Lymphs (auto) 1.3 Absolute Monos (auto) 0.4 Absolute Eos (auto) 0.1 Absolute Basos (auto) 0.0 Seg Neutrophils % 71.4 Sodium 134.3 L Potassium 3.4 L Chloride 107 Carbon Dioxide 21 L Anion Gap 6 BUN 5 L Creatinine 0.47 L Est GFR ( Amer) > 60 Est GFR (MDRD) Non-Af > 60 Glucose 97 Calcium 9.4 Total Bilirubin 0.3 Direct Bilirubin 0.0 Neonat Total Bilirubin Not Reportable Neonat Direct Bilirubin Not Reportable Neonat Indirect Bili Not Reportable AST 39 H ALT 40 H Alkaline Phosphatase 52 Total Protein 7.0 Albumin 3.6 Urine Color YELLOW Urine Appearance SLIGHTLY-CLOUDY Urine pH 6.0 Ur Specific [place] 1.029 Urine Protein 30 H Urine Glucose (UA) NEGATIVE Urine Ketones 80 H Urine Blood NEGATIVE Urine Nitrite NEGATIVE Urine Bilirubin NEGATIVE Urine Urobilinogen NEGATIVE Ur Leukocyte Esterase SMALL H Urine WBC (Auto) 2 Urine RBC (Auto) 1 Squamous Epi Cells Auto 5 Calcium Oxalate Cr Auto FEW Urine Mucus (Auto) MANY Urine Ascorbic Acid NEGATIVE - Vital Signs Vital signs: Temp Pulse Resp BP Pulse Ox 98.3 F 88 15 108/62 100 04/12/20 16:10 04/12/20 16:10 04/12/20 16:10 04/12/20 16:10 04/12/20 16:10 - Laboratory Result Diagrams: 04/12/20 12:51 04/12/20 12:51 Laboratory results interpreted by me: 04/12/20 04/12/20 04/12/20 12:48 12:51 12:51 Hgb 11.6 L Hct 33.6 L Sodium 134.3 L Potassium 3.4 L Carbon Dioxide 21 L BUN 5 L Creatinine 0.47 L AST 39 H ALT 40 H Urine Protein 30 H Urine Ketones 80 H Ur Leukocyte Esterase SMALL H Discharge - Discharge Clinical Impression: UTI (urinary tract infection) Qualifiers: Urinary tract infection type: site unspecified Hematuria presence: without hematuria Qualified Code(s): N39.0 - Urinary tract infection, site not specified Condition: Stable Disposition: HOME, SELF-CARE Additional Instructions: Your urine shows findings consistent with a urinary tract infection. Please take all the antibiotics as directed even if your symptoms have improved. Please follow-up with your primary care physician as needed. Return to emergency room if you develop fever >101F, persistent vomiting, become lethargic, have severe pain in your sides, or any other symptoms that are concerning to you. Prescriptions: Cephalexin [Keflex] 500 mg PO BID #14 capsule Referrals: THAIS ROSADO MD [Primary Care Provider] - Follow up as needed
[2020-04-12 15:13] LABS: APPEARANCE,URINE SLIGHTLY-CLOUDY; BILIRUBIN,URINE NEGATIVE (NEGATIVE); CALCIUM OXALATE CRYSTALS,URINE FEW /HPF; COLOR,URINE YELLOW; GLUCOSE, URINE NEGATIVE (NEGATIVE); KETONES,URINE 80 mg/dL (NEGATIVE); LEUKOCYTE ESTERASE,URINE SMALL (NEGATIVE); NITRITE,URINE NEGATIVE (NEGATIVE); PROTEIN,URINE 30 mg/dL (NEGATIVE); URINE SPECIFIC GRAVITY 1.029; UROBILINOGEN,URINE NEGATIVE mg/dL (<2.0)
[2020-04-12 16:14] VITALS: BP 108/62
== END 2020-04-12 16:15 | disposition home or self-care (01) ==
LOC: ER 11:50
DX: O23.42 Unspecified infection of urinary tract in pregnancy, second trimester (principal); R10.30 Lower abdominal pain, unspecified; Z3A.15 15 weeks gestation of pregnancy
CPT/HCPCS: 36415; 76805; 80053; 81001; 85025; 87086; 99284